=== PATIENT | female | born 1965 | race Caucasian/White ===

== ENCOUNTER 2017-04-19 12:25 | Emergency (ER) | payer SELFPAY ==
[2017-04-19 12:32] VITALS: BP 147/74
--- NOTE | 2017-04-19 13:25 | ER Document Report ---
ED Hip Pain/Injury - General Chief Complaint: Hip Pain Stated Complaint: HIP/LEG PAIN Time Seen by Provider: 04/19/17 13:02 Mode of Arrival: Ambulatory Information source: Patient TRAVEL OUTSIDE OF THE [place] IN LAST 30 DAYS: No - HPI Patient complains to provider of: Hip - States right hip bothers her for 2 years told it was arthritis does not have a primary care physician can afford physical therapy no new injury Pain Level: 2 Associated Symptoms: None - Related Data Allergies/Adverse Reactions: No Known Allergies Allergy (Unverified 10/09/15 12:26) Past Medical History - Social History Smoking Status: Current Every Day Smoker Chew tobacco use (# tins/day): No Frequency of alcohol use: Rare Drug Abuse: None Family History: Reviewed & Not Pertinent Patient has suicidal ideation: No Patient has homicidal ideation: No Renal/ Medical History: Denies: Hx Peritoneal Dialysis Musculoskeltal Medical History: Reports Hx Arthritis Past Surgical History: Reports: Hx Orthopedic Surgery - R rotator cuff, Hx Tonsillectomy, Hx Tubal Ligation - Immunizations Hx Diphtheria, Pertussis, Tetanus Vaccination: Yes Review of Systems - Review of Systems Constitutional: No symptoms reported Cardiovascular: No symptoms reported Respiratory: No symptoms reported Gastrointestinal: No symptoms reported Genitourinary: No symptoms reported Musculoskeletal: Joint pain Skin: No symptoms reported Hematologic/Lymphatic: No symptoms reported Neurological/Psychological: No symptoms reported Physical Exam - Vital signs Vitals: Temp Pulse Resp BP Pulse Ox 99.1 F 75 18 147/74 H 96 04/19/17 12:30 04/19/17 12:30 04/19/17 12:30 04/19/17 12:30 04/19/17 12:30 - General General appearance: Appears well, Alert - Respiratory Respiratory status: No respiratory distress - Cardiovascular Rhythm: Regular Heart sounds: Normal auscultation - Abdominal Inspection: Normal Distension: No distension Tenderness: Nontender Organomegaly: No organomegaly - Back Back: Normal. No: Deformity/step-off, CVA tenderness, Vertebra tenderness - Extremities General upper extremity: Normal inspection General lower extremity: Normal inspection - Patient states the pain is in the anterior aspect of the hip right groin area. There is no bony tenderness deformity redness swelling or instability of the joint through all ranges of motion. There is no skin lacerations abrasions or contusion. Full range of motion of lower extremity no acute vascular or neurological compromise. Course - Re-evaluation Re-evalutation: 04/19/17 13:27 Patient presents emergency department 2 year history of right hip pain. She said when she had a primary care physician and told her that it was arthritis. She states that they wanted do physical therapy she then lost her insurance. She does work with their insurance increased several $100 a month which she cannot afford. She says it bothers her worse when she gets up in the morning and then gets better throughout the day until she has been on it at work for long period of time and then she has trouble sleeping. She said she has to wear steel toed boots and is on the cement floor at work. She denies any new character quality frequency and duration of the previous episodes no urinary bowel or bladder complaints on examination she is neurovascularly stable. I have given her information to the medical case worker to establish her an outpatient follow-up plan for the clinic to start there. They may have an avenue to refer her to orthopedic clinic where she may be able to have further assessment and possibly injections. No new injury or trauma suggesting that she be doing an x- ray of the area. Explained this to her and discussed reasons for ED return sooner - Vital Signs Vital signs: Temp Pulse Resp BP Pulse Ox 99.1 F 75 18 147/74 H 96 04/19/17 12:30 04/19/17 12:30 04/19/17 12:30 04/19/17 12:30 04/19/17 12:30 Discharge - Discharge Clinical Impression: chronic right hip pain, History of arthritis to the right hip Condition: Stable Disposition: HOME, SELF-CARE Additional Instructions: Chronic Pain Control Stress, inactivity, and depression make pain more severe regardless of the cause of the pain. Stress and poor physical condition can cause pain such as headaches and backache. Relaxation: Rest in a quiet place with your eyes closed for 20 minutes twice daily. Concentrate on a pleasant image, or simply "feel" your breathing. Clear your mind. Stress management: Deal with your "stressors." Either take action, or eliminate the stressor from your life. Don't let things hang over you. Accept those things you can't change. Nutrition: Eat small, balanced meals -- don't skip, don't overeat. Meals should be high-carbohydrate, low-sugar, low-fat. Exercise: Exercise helps painful conditions and eases stress. Get 30 minutes of moderate exercise, five days a week. Do an activity that does not flare your pain. Precautions: Pain which continues to disrupt daily activities, or which changes in nature, requires a medical evaluation. Pain Clinic referral is available. We do not manage chronic pain in the Emergency Department. We will try to appropriately help you through an acute flare of your chronic painful condition , but for on-going chronic pain that does not improve, you will need to see your private doctor or traffic line painter. We do not provide repeated medication management of chronic painful conditions. If you wish, we can provide the name of local pain management physicians. Arthritis Your symptoms are due to arthritis. Arthritis is an inflammation of the joints. There are many types -- osteoarthritis (due to "wear and tear"), auto- immmune arthritis (such as rheumatoid, lupus, Eva's, and others), and crystal -induced arthritis (such as gout and pseudogout). The physician's examination, combined with laboratory tests, will determine the cause of your arthritis. All types of arthritis are treated with antiinflammatory medications. Other medication may be required for special types of arthritis, or if your problem does not respond to the antiinflammatory medicine. Local warmth may be helpful. Move the involved joints through the full range of motion daily. Mild exercise is usually still possible for most persons with arthritis (ask your physician). Swimming provides good exercise without damaging the joints. Contact the physician if you are worsening in any way. Forms: Return to Work Referrals: [facility] [Provider Group] - Follow up in 3-5 days (I have given you information to the medical case worker to help you obtain a follow-up appointment return for increasing worsening any symptoms)
== END 2017-04-19 13:20 | disposition home or self-care (01) ==
LOC: ER 12:25
DX: M25.551 Pain in right hip (principal); M16.11 Unilateral primary osteoarthritis, right hip; G89.29 Other chronic pain; M79.604 Pain in right leg; F17.200 Nicotine dependence, unspecified, uncomplicated
CPT/HCPCS: 99283

== ENCOUNTER 2017-08-20 13:39 | Emergency (ER) | payer SELFPAY ==
[2017-08-20 13:45] VITALS: BP 108/69
[2017-08-20] MEDS ORDERED: METHYLPREDNISOLONE INJ 125 MG/2 ML SDV IM ONE (14:16)
--- NOTE | 2017-08-20 14:19 | ER Document Report ---
HPI - HPI Pain Level: 4 Notes: Patient is a 51-year-old female who presents to the ED complaining of nasal congestion/discharge, postnasal drip, sinus pressure, some loss of voice, intermittent dry nonproductive cough 2-2-1/2 weeks. Patient states that she has been using [id number] meds with minimal relief. She still eating and drinking without difficulties. She is urinating normally and having normal bowel movements. She denies any significant past medical history. She denies any drug allergies. Denies any fever, head injury, neck pain, sore throat, chest pain, palpitations, syncope, shortness of breath, wheeze, dyspnea, abdominal pain, nausea/vomiting/diarrhea, urinary retention, dysuria, hematuria , or rash. - ROS Notes: REVIEW OF SYSTEMS: CONSTITUTIONAL : Denies fever, chills, or sweats. Denies recent illness. EENT: see hpi CARDIOVASCULAR: Denies chest pain. Denies palpitations or racing or irregular heart beat. Denies ankle edema. RESPIRATORY: see hpi. Denies shortness of breath, difficulty breathing, or wheezing. GASTROINTESTINAL: Denies abdominal pain or distention. Denies nausea, vomiting , or diarrhea. Denies blood in vomitus, stools, or per rectum. Denies black, tarry stools. Denies constipation. GENITOURINARY: Denies difficulty urinating, painful urination, burning, frequency, blood in urine, or discharge. MUSCULOSKELETAL: Denies back or neck pain or stiffness. Denies joint pain or swelling. SKIN: Denies rash, lesions or sores. NEUROLOGICAL: Denies dizziness or lightheadedness. Denies headache. Denies weakness or paralysis or loss of use of either side. Denies problems with gait or speech. Denies sensory loss, numbness, or tingling. Denies seizures. ALL OTHER SYSTEMS REVIEWED AND NEGATIVE. Dictation was performed using [employer] voice recognition software - REPRODUCTIVE Reproductive: DENIES: : Past Medical History - Social History Smoking Status: Current Every Day Smoker Family History: Reviewed & Not Pertinent Renal/ Medical History: Denies: Hx Peritoneal Dialysis Musculoskeltal Medical History: Reports Hx Arthritis Past Surgical History: Reports: Hx Orthopedic Surgery - R rotator cuff, Hx Tonsillectomy, Hx Tubal Ligation - Immunizations Hx Diphtheria, Pertussis, Tetanus Vaccination: Yes Vertical Provider Document - CONSTITUTIONAL Agree With Documented VS: Yes Notes: PHYSICAL EXAMINATION: GENERAL: Well-appearing, well-nourished and in no acute distress. A&ox4 HEAD: Atraumatic, normocephalic. EYES: Pupils equal round and reactive to light, extraocular movements intact, sclera anicteric, conjunctiva are normal. ENT: EAC clear b/l. TM's intact b/l without erythema, fluid, or perforation. Nares patent and with yellow discharge. oropharynx clear without exudates. No tonsilar hypertrophy or erythema. Moist mucous membranes. + sinus tenderness. Uvula midline. No palatine shift. No tongue protrusion. No airway compromise. NECK: Normal range of motion, supple without lymphadenopathy. No rigidity/ meningismus. LUNGS: Breath sounds clear to auscultation bilaterally and equal. No wheezes rales or rhonchi. HEART: Regular rate and rhythm without murmurs, rubs, gallops. ABDOMEN: Soft, nontender, nondistended abdomen. No guarding, no rebound. No masses appreciated. Normal bowel sounds present. No CVA tenderness bilaterally. Musculoskeletal: FROM to passive/active. Strength 5+/5. Extremities: No cyanosis, clubbing, or edema b/l. Peripheral pulses 2+. Capillary refill less than 3 seconds. NEUROLOGICAL: Cranial nerves grossly intact. Normal speech, normal gait. Normal sensory, motor exams PSYCH: Normal mood, normal affect. SKIN: Warm, Dry, normal turgor, no rashes or lesions noted. - INFECTION CONTROL TRAVEL OUTSIDE OF THE [place] IN LAST 30 DAYS: No - RESPIRATORY O2 Sat by Pulse Oximetry: 99 Course - Re-evaluation Re-evalutation: 08/20/17 14:17 Patient is an afebrile, well-hydrated, 51-year-old female who presents the ED with acute sinusitis and cough, I suspect viral at this time. Vitals are stable. PE is otherwise unremarkable. No imaging or lab testing warranted at this time based on H&P. I will give her Solu-Medrol 125 mg IM today. Low suspicion for any ACS, PE, pneumothorax, pericarditis, dissection, respiratory compromise, severe dehydration, sepsis, meningitis, or other systemic emergent condition at this time. Patient is aware that her condition can change from initial presentation and she needs to monitor symptoms closely and seek medical attention for any acute changes. I will send her home with a pocket prescription of Augmentin that she may begin with ongoing worsening symptoms in 2-3 days. Recommend conservative measures for symptoms. Recheck with your PCM in 3-5 days. Return to the ED with any worsening/concerning symptoms otherwise as reviewed in discharge. Patient is in agreement. - Vital Signs Vital signs: Temp Pulse Resp BP Pulse Ox 98.0 F 77 18 108/69 99 08/20/17 13:45 08/20/17 13:45 08/20/17 13:45 08/20/17 13:45 08/20/17 13:45 Discharge - Discharge Clinical Impression: Acute URI Acute sinusitis Qualifiers: Sinusitis location: maxillary Recurrence: non-recurrent Qualified Code(s): J01.00 - Acute maxillary sinusitis, unspecified Condition: Stable Disposition: HOME, SELF-CARE Instructions: Upper Respiratory Illness ([facility]), Sinusitis ([facility]), Augmentin ([facility]) Additional Instructions: Maintain adequate fluid intake Take meds as directed--may being with ongoing/worsening symptoms x2-3 days. tylenol/ibuprofen as needed over the counter cold medication as needed for symptoms Humidified air may help F/u: with your PCM in 3-5 days for a recheck Return to the ED with any fever, worsening pain, chest pain, palpitations, syncope, worsening ADEN, neck pain/stiffness, shortness of breath, wheezing, drooling, trouble swallowing/breathing, abdominal pain, n/v/d, rash, or worsening/concerning symptoms otherwise. Prescriptions: Amox Tr/Potassium Clavulanate [Augmentin 875-125 Tablet] 1 tab PO BID #20 tablet Referrals: [facility] [Provider Group] - Follow up as needed [facility] [Provider Group] - Follow up as needed
== END 2017-08-20 14:30 | disposition home or self-care (01) ==
LOC: ER 13:39
DX: J06.9 Acute upper respiratory infection, unspecified (principal); J01.00 Acute maxillary sinusitis, unspecified; R09.81 Nasal congestion; R09.89 Other specified symptoms and signs involving the circulatory and respiratory systems; R09.82 Postnasal drip; R05 Cough; F17.200 Nicotine dependence, unspecified, uncomplicated
CPT/HCPCS: 99283; 96372; J2930

== ENCOUNTER → 2020-04-03 | Outpatient (CLI) | payer SELFPAY ==
--- NOTE | 2020-04-03 09:53 | ER RDC ASSESSMENT REPORT ---
Intake - In the Last 14 days Have you traveled outside [place]?: No Have you been in close contact with someone CONFIRMED: Yes Worked in Healthcare?: No - Symptoms Subjective Fever([place] feverish): No Chills: No Muscule Aches: No Runny Nose: No Sore Throat: No Cough (New or worsening chronic cough): No Shortness of breath: No Nausea or Vomiting: No Headache: No Abdominal Pain: No Diarrhea(3 or more loose stools in last 24 hours): No - Do you have any of the following Chronic lung disease: Asthma or emphysema or COPD: No Cystic Fibrosis: No Diabetes: No High Blood Pressure: No Cardiovascular Disease: No Chronic Kidney Disease: No Chronic Liver Disease: No Chronic blood disorder like Sickle Cell Disease: No Weak immune system due to disease or medication: No Neurologic condition that limits movement: No Developmental delay - Moderate to Severe: No Recent (within past 2 weeks) or current : No Morbid Obesity (>100 pounds over ideal weight): No - Objective Temperature: 98.2 F Pulse Rate: 72 Respiratory Rate: 18 Blood Pressure: 141/74 O2 Sat by Pulse Oximetry: 95 Objective: Given above, testing performed: If Testing Performed: Test Specimen Type Sent to General - General Information source: Patient Notes: Patient here today at [facility] for COVID testing reports patient traveled to [place] between March 14- roommate and daughter tested positive on the patient remains asymptomatic reports tried to get up with PCP at [facility] [place] will follow-up again - Related Data Allergies/Adverse Reactions: No Known Allergies Allergy (Verified 08/20/17 13:40) Past Medical History - General Information source: Patient - Social History Smoking Status: Current Every Day Smoker Cigarette use (# per day): Yes - Smokes a pack a day Smoking Education Provided: Yes - Smoking Family History: Reviewed & Not Pertinent Renal/ Medical History: Denies: Hx Peritoneal Dialysis Musculoskeletal Medical History: Reports Hx Arthritis Past Surgical History: Reports: Hx Orthopedic Surgery - R rotator cuff, Hx Tonsillectomy, Hx Tubal Ligation Physical Exam - General General appearance: Appears well, Alert In distress: None Notes: PHYSICAL EXAMINATION: GENERAL: Well-appearing and in no acute distress. HEAD: Atraumatic, normocephalic. EYES: sclera anicteric, conjunctiva are normal. ENT: nares patent. Moist mucous membranes. NECK: Normal range of motion, supple without lymphadenopathy LUNGS: CTAB and equal. No wheezes rales or rhonchi. Resp even and unlabored. Lung sounds clear. HEART: Regular rate and rhythm without murmurs ABDOMEN: Soft, nontender, normal bowel sounds, no guarding. EXTREMITIES: No cyanosis. NEUROLOGICAL: Normal speech. PSYCH: Normal mood, normal affect. SKIN: Warm, Dry, normal turgor, no rashes or lesions noted Diagnostic Results Laboratory Results: Pending COVID testing results patient provided instructions regarding COVID to include: As a person under investigation for Covid 19, the [facility] Health and Human Services, division of public health advises you to adhere to the following guidance until your test results are reported to you. If your test result is positive, you will receive additional information from your provider and your local health department at that time. Remain at home until you are cleared by the health provider or public health authorities. Keep a log of visitors to your home, notify any visitors to your home of your isolation status. If you plan to move to a new address or leave the county, notify the local health department in your County. Call your doctor or seek care if you have an urgent medical need. Before seeking medical care, call ahead to get instructions from the provider before arriving at the medical office clinic or hospital. Notify them that you are being tested for the virus that causes Covid 19 so that arrangements can be made, as necessary, to prevent transmission to others in the healthcare setting. Next, notify the local health department in your [facility]. If a medical emergency arises and you need to call 911, inform the first responders that you are being tested for the virus that causes Covid 19. Next, notify the local health department in your [facility]. Patient Education/Counseling Counseling/Education: Patient presents with upper respiratory symptoms worrisome for possible Covid 19. Patient does not have emergency worring symptoms such as difficulty breathing, shortness of breath, chest pain, pressure, confusion or cyanosis. Patient appears suitable for discharge. Patient instructed to follow-up with PCP at [facility] ED for persistent or worsening symptoms. Patient's vital signs are stable and patient is nontoxic in appearance. Good return precautions have been discussed with patient, patient verbalized understanding and is agreeable with discharge plan of care at this time. C Discharge - Discharge Clinical Impression: Encounter for screening laboratory testing for COVID-19 virus in asymptomatic patient Condition: Stable Disposition: Home; Selfcare
[2020-04-03 09:55] VITALS: BP 141/74
== END ==
LOC: RDC 09:09
PROVIDERS: ATTEND Nurse Practitioner Family
DX: Z20.828 Contact with and (suspected) exposure to other viral communicable diseases (principal); M13.80 Other specified arthritis, unspecified site; F17.210 Nicotine dependence, cigarettes, uncomplicated
CPT/HCPCS: 87635; C9803; 99201; 99211